=== PATIENT | male | born 1995 | race Caucasian/White ===

== ENCOUNTER 2018-04-04 18:10 | Emergency (ER) | payer BC ==
[2018-04-04] MEDS ORDERED: Proparacaine 0.5% OPHTH.SOL* 15 ML BTL LEFT EYE ONE (18:19)
[2018-04-04] MEDS ORDERED: NS 0.9% 1000 ML* 1,000 ML IV ONE (18:19)
[2018-04-04] MEDS ORDERED: Tetracaine 0.5% OPTH.SOL 4 ML* 1 DROP BTL ONE (18:34)
[2018-04-04] MEDS ORDERED: Fluorescein Sod TOPICAL 0.6* 0.6 MG TEST OPHTHALMIC ONE ×2 (19:27→19:29)
--- NOTE | 2018-04-04 19:36 | ED ---
Throat Pain/Nasal Congestion - HPI Summary HPI Summary: Patient with contact lenses was fixing garbage disposal when some fluids dripped into left eye. Fluids possibly ammonia and silicone. Patient extracted contact lens from left eye. Here with pain in left eye. Denies gross vision change, though he states he cannot see very well without contact lens at baseline. Denies any other pain or injury. - History of Current Complaint Chief Complaint: EDEyeProblem Time Seen by Provider: 04/04/18 18:18 Hx Obtained From: Patient Onset/Duration: Sudden Onset Severity: Mild Associated Signs And Symptoms: Positive: Negative Cough: None - Allergies/Home Medications Allergies/Adverse Reactions: Allergies Allergy/AdvReac Type Severity Reaction Status Date / Time No Known Allergies Allergy Verified 04/04/18 18:17 Home Medications: Home Medications Amphetamine MIXED SALT TAB* [Adderall TAB*] 20 mg PO DAILY 04/04/18 [History Confirmed 04/04/18] Amphetamine/Dextroamph ER(NF) [Adderal XR (NF)] 25 mg PO DAILY 04/04/18 [ History Confirmed 04/04/18] PMH/Surg Hx/FS Hx/Imm Hx Endocrine/Hematology History: Denies: Hx Anticoagulant Therapy Cardiovascular History: Denies: Hx Cardiac Arrest History: Denies: Hx Dialysis Neurological History: Denies: Hx CVA - Immunization History Immunizations Up to Date: Yes Infectious Disease History: No Infectious Disease History: Denies: Traveled Outside the [place] in Last 30 Days - Social History Occupation: Employed Full-time Lives: With Family Alcohol Use: Weekly Substance Use Type: Reports: Marijuana Substance Use Comment - Amount & Last Used: monthly Smoking Status (MU): Light Every Day Tobacco Smoker Review of Systems Constitutional: Negative Eyes: Other ENT: Negative Cardiovascular: Negative Respiratory: Negative Gastrointestinal: Negative Genitourinary: Negative Musculoskeletal: Negative Skin: Negative Neurological: Negative Psychological: Normal All Other Systems Reviewed And Are Negative: Yes Physical Exam - Summary Physical Exam Summary: Positive conjunctival injection left eye. Corneal abrasion on exam. Triage Information Reviewed: Yes Vital Signs On Initial Exam: Initial Vitals Temp Pulse Resp BP Pulse Ox 98 F 101 17 141/91 99 04/04/18 18:14 04/04/18 18:14 04/04/18 18:14 04/04/18 18:14 04/04/18 18:14 Vital Signs Reviewed: Yes Appearance: Positive: Well-Appearing Skin: Positive: Warm Head/Face: Positive: Normal Head/Face Inspection Eyes: Positive: Normal, EOMI, PATTI, Conjunctiva Inflammed. Negative: Conjunctiva Clear, Discharge Neck: Positive: Supple Respiratory/Lung Sounds: Positive: Clear to Auscultation Cardiovascular: Positive: Normal Abdomen Description: Positive: Nontender Musculoskeletal: Positive: Normal Neurological: Positive: Normal Psychiatric: Positive: Normal AVPU Assessment: Alert - Oden Coma Scale Best Eye Response: 4 - Spontaneous Best Motor Response: 6 - Obeys Commands Best Verbal Response: 5 - Oriented Coma Scale Total: 15 Diagnostics - Vital Signs Vital Signs Temp Pulse Resp BP Pulse Ox 04/04/18 18:14 98 F 101 17 141/91 99 - Laboratory Lab Statement: Any lab studies that have been ordered have been reviewed, and results considered in the medical decision making process. EENT Course/Dx - Course Course Of Treatment: Patient with contact lenses was fixing garbage disposal when some fluids dripped into left eye. Fluids possibly ammonia and silicone. Patient extracted contact lens from left eye. Here with pain in left eye. Denies gross vision change, though he states he cannot see very well without contact lens at baseline. Denies any other pain or injury. Physical exam: Positive conjunctival injection left eye. Corneal abrasion on exam. Discussed potential exposure to ammonia and silicone in left eye (while wearing contact lens) with poison control who recommended pH check, flushing and ophthalmology follow-up. PH was 7. Patient left eye flushed with 1L normal saline through a Timo lens. Will follow up with his anesthesiology physician assistant on sat 04/05. Acuity check limited by baseline diminished vision. - Diagnoses Provider Diagnoses: Left eye pain, Corneal abrasion, Chemical exposure of eye Discharge - Sign-Out/Discharge Documenting (check all that apply): Patient Departure - Discharge Plan Condition: Stable Disposition: HOME Patient Education Materials: Chemical Eye Sheth (ED), Corneal Abrasion (ED), Eye Pain (ED) Referrals: No Primary Care Phys,NOPCP [Primary Care Provider] - Nino Arreola [Medical Doctor] - Additional Instructions: 2 drops of antibiotic solution in left eye every 4 hrs. Follow-up tomorrow with your anesthesiology physician assistant or Dr. Arreola for further evaluation. Return to the ED for any new or worsening symptoms - Billing Disposition and Condition Condition: STABLE Disposition: Home
[2018-04-04 19:55] VITALS: BP 0/0
[2018-04-04] MEDS ORDERED: Gentamicin 0.3% OPHTH.SOLN* 5 ML BTL LEFT EYE SCH (20:00)
== END 2018-04-04 19:54 | disposition home or self-care (01) ==
LOC: ED 18:10
DX: H57.12 Ocular pain, left eye (principal); S05.02XA Injury of conjunctiva and corneal abrasion without foreign body, left eye, initial encounter; S00.202A Unspecified superficial injury of left eyelid and periocular area, initial encounter; X58.XXXA Exposure to other specified factors, initial encounter; Y92.9 Unspecified place or not applicable; Z46.0 Encounter for fitting and adjustment of spectacles and contact lenses
CPT/HCPCS: 99282; A9270-GY

== ENCOUNTER 2018-11-20 12:28 | Emergency (ER) | payer BC ==
[2018-11-20 13:21] VITALS: BP 127/73
--- NOTE | 2018-11-20 14:10 | UC ---
Lower Extremity/Ankle HPI - HPI Summary HPI Summary: 23 y/o male presents to the urgent care c/o left foot pain for the past month. Pt reports he was in [place] and just returned. He walk a lot and that is how foot pain started after a long day of walking. Pt states pain last for a few days, it gets better and then returns. Pain today is 1/10, localized in the medial aspect of the mid foot w/o any swelling or bruise. However this past week ,he had to wear crutches. He has been taking Ibuprofen PO he bought in [place] which seems to help. Pt denies previous injury, calf pain, SOB, chest pain, abdominal pain, N/V/D. - History of Current Complaint Chief Complaint: UCLowerExtremity Stated Complaint: ANKLE/FOOT PAIN Time Seen by Provider: 11/20/18 14:03 Hx Obtained From: Patient Onset/Duration: Gradual Onset, Lasting Weeks - 1 month, Still Present Severity Initially: Mild Severity Currently: Moderate Pain Intensity: 2 Pain Scale Used: 0-10 Numeric Aggravating Factor(s): Standing, Ambulation Alleviating Factor(s): Rest, OTC Meds Able to Bear Weight: Yes - Risk Factors Gout Risk Factors: Negative DVT Risk Factors: Negative Septic Arthritis Risk Factor: Negative - Allergies/Home Medications Allergies/Adverse Reactions: Allergies Allergy/AdvReac Type Severity Reaction Status Date / Time No Known Allergies Allergy Verified 11/20/18 13:21 Home Medications: Home Medications Sertraline HCl [Zoloft] 50 mg PO DAILY WITH MEAL 11/20/18 [History Confirmed ] PMH/Surg Hx/FS Hx/Imm Hx Previously Healthy: Yes - Pt denies PMHX Other History Of: Negative For: Anticoagulant Therapy - Surgical History Surgical History: None Surgery Procedure, Year, and Place: wisdom teeth - Family History Known Family History: Positive: Seizure Disorder Family History: hashimotos thyroditis, - Social History Alcohol Use: Daily Substance Use Type: Marijuana Substance Use Comment - Amount & Last Used: monthly Smoking Status (MU): Light Every Day Tobacco Smoker Review of Systems All Other Systems Reviewed And Are Negative: Yes Constitutional: Positive: Negative Skin: Positive: Negative Eyes: Positive: Negative ENT: Positive: Negative Respiratory: Positive: Negative Cardiovascular: Positive: Negative Gastrointestinal: Positive: Negative Genitourinary: Positive: Negative Motor: Positive: Negative Neurovascular: Positive: Negative Musculoskeletal: Positive: Decreased ROM - left foot, Other: - left foot pain s/ p walking a lot Neurological: Positive: Negative Psychological: Positive: Negative Is Patient Immunocompromised?: No Physical Exam - Summary Physical Exam Summary: Vital Signs Reviewed: Yes General : well developed, well nourished male w/o any apparent distress Eyes: Positive: Conjunctiva Clear - PERRLA, EOMI ENT: Positive: Normal ENT inspection, Hearing grossly normal, Pharynx normal, TMs normal Neck: Positive: Supple, Nontender, No Lymphadenopathy Respiratory: Positive: Chest non-tender, Lungs clear, Normal breath sounds, No respiratory distress Cardiovascular: Positive: RRR, No Murmur, Pulses Normal Abdomen Description: Positive: Nontender, No Organomegaly, Soft. Negative: CVA Tenderness (R), CVA Tenderness (L) Bowel Sounds: Positive: Present Musculoskeletal: Positive: Strength Intact, ROM Intact, No Edema, Other: - Foot/ Toes: Pt is able to bear weight but ambulate with mild limping. RT foot :No surface trauma, ecchymosis, erythema, lesions, ulcers or break in skin integrity. The R foot is without obvious asymmetry or deformity when compared to the L foot. No bony step-off, No tenderness to palpation over toes, point tenderness over the dorsal side of mid foot and base of the 4th and 5th metatarsal and sole at the same level, no tenderness of hindfoot, Decrease plantar/dorsiflexion, inversion/eversion due to pain. Distal motor and neurovascular status are intact. Neurological Exam: Normal Psychological Exam: Normal Skin Exam: Normal Triage Information Reviewed: Yes Vital Signs: Initial Vital Signs Temp 98.7 F 11/20/18 13:16 Pulse 88 11/20/18 13:16 Resp 18 11/20/18 13:16 BP 127/73 11/20/18 13:16 Pulse Ox 99 11/20/18 13:16 Lower Extremity Course/Dx - Course Course Of Treatment: 23 y/o male presents to the urgent care c/o left foot pain for the past month. Pt reports he was in [place] and just returned. He walk a lot and that is how foot pain started after a long day of walking. Pt states pain last for a few days, it gets better and then returns. Pain today is 1/10, localized in the medial aspect of the mid foot w/o any swelling or bruise. However this past week ,he had to wear crutches. He has been taking Ibuprofen PO he bought in [place] which seems to help. Pt denies previous injury, calf pain, SOB, chest pain, abdominal pain, N/V/D. Hx obtained. LF foot X-ray ordered, Impression:There was no fracture, dislocation, soft tissue swelling or FB noted. Probably plantar fasciitis or tendonitis. Pt's foot immobilized with adams-bandage and given a post -op shoe to avoid flexion. Advised RICE, and continue taking Ibuprofen PO for pain, If not improvement of symptoms to f/u with Orthopedic DR from Sports Medicine for further evaluation and treatment. Pt understood and agreed with D/C instructions - Differential Dx/Diagnosis Differential Diagnosis/HQI/PQRI: Contusion, Fracture (Closed), Sprain, Strain, Tendonitis, Other - plantar fasciitis Provider Diagnosis: Acute pain of left foot, Plantar fasciitis of left foot, Tendonitis Discharge - Sign-Out/Discharge Documenting (check all that apply): Patient Departure - d/c home All imaging exams completed and their final reports reviewed: Yes - Discharge Plan Condition: Stable Disposition: HOME Prescriptions: Ibuprofen TAB* [Motrin TAB* 600 MG] 600 mg PO Q6H PRN #30 tab PRN Reason: Pain Patient Education Materials: Plantar Fasciitis (ED), Tendinitis (ED) Referrals: Dylan Hua MD [Primary Care Provider] - 1 Week [facility] [Provider Group] - 3 Days Additional Instructions: 1-Please take Ibuprofen PO q6-8hrs pen as directed to alleviate pain and swelling. 2-Please apply ice, keep your foot immobilized with the Adams bandage and use the post-op shoe to avoid flexion. Avoid strenuous exercise or standing for long periods of time. Use your crutches to avoid weight bearing. 3- Please f/u with your Sports Medicine DR in 3 days if not improvement of symptoms for further evaluation and treatment. - Billing Disposition and Condition Condition: STABLE Disposition: Home
== END 2018-11-20 15:47 | disposition home or self-care (01) ==
LOC: UCEAST 12:28
DX: M79.672 Pain in left foot (principal); M72.2 Plantar fascial fibromatosis; M77.52 Other enthesopathy of left foot and ankle; F17.200 Nicotine dependence, unspecified, uncomplicated
CPT/HCPCS: 99213; G0463